=== PATIENT | female | born 1970 | race Caucasian/White ===

== ENCOUNTER 2023-02-27 14:46 | Outpatient (REF) | payer OTHER, SELFPAY ==
--- NOTE | ~2023-02-27 | US_ITS ---
EXAMINATION: MM DIAGNOSTIC DIGITAL BREAST TOMOSYNTHESIS, BILATERAL US BREAST LIMITED, LEFT MAMMOGRAPHY: CLINICAL INFORMATION: Palpable focus of abnormality left breast 1-2 o'clock axis. Due for bilateral screening. COMPARISON: Mammography: 04/27/2021, 08/04/2016, 07/19/2016, 07/15/2014. TECHNIQUE: Digital breast tomosynthesis is performed in both the craniocaudal and mediolateral oblique views along with computer-aided detection (CAD). Synthesized 2D images are generated from the tomosynthesis. In addition, spot compression views of the left breast upper outer axis in the CC and MLO projections were performed in the region of palpable concern. FINDINGS: There are scattered areas of fibroglandular density (ACR BI-RADS breast composition Category b). There are no suspicious masses, suspicious grouped calcifications, or areas of architectural distortion in either breast. The parenchymal pattern is stable from prior exams. There is no mammographic correlate to the region of palpable concern in the upper outer left breast. ULTRASOUND: CLINICAL INFORMATION: Palpable focus of concern upper outer left breast. COMPARISON: None TECHNIQUE: Targeted sonographic evaluation was performed using a high frequency linear transducer. Selected archived documentation. FINDINGS: LEFT BREAST: There is a mixture of fatty and fibroglandular tissue. No suspicious mass is seen. There is no pathologic acoustic shadowing. There is no cystic abnormality. No correlate to the palpable area in the left breast at the 1 to 2:00 axis is evident. US/US breast LT limited mamm only IMPRESSION: There is no finding in the either breast suspicious for malignancy. Palpable focus of concern in the upper outer left breast demonstrates no mammographic or ultrasonographic correlate. Clinical management recommended. Otherwise, recommend resuming routine annual screening. OVERALL ASSESSMENT: Mammography: BI-RADS 1 - Negative Ultrasound: BI-RADS 1 - Negative RECOMMENDATION: 1. Patient should be managed based on the clinical impression. Decision to proceed with biopsy should be based on clinical grounds and degree of clinical concern. 2. Otherwise, routine annual screening mammography. Results were provided to the patient at time of visit by the technologist. This patient's information was entered into a reminder system with a target due date for their next mammogram.
== END 2023-02-27 14:47 | disposition home or self-care (01) ==
LOC: HO.MAMMO 14:46
PROVIDERS: PCP Nurse Practitioner Family; Visit Provider Nurse Practitioner Family
DX: N64.4 Mastodynia (principal)
CPT/HCPCS: 76642; 77062; 77066

== ENCOUNTER → 2023-02-27 15:00 | Outpatient (BNV) | payer OTHER, SELFPAY | PROVIDERS: PCP Nurse Practitioner Family; Visit Provider Radiology Diagnostic Radiology | DX: R92.323 Mammographic fibroglandular density, bilateral breasts (principal); R92.321 Mammographic fibroglandular density, right breast; R92.311 Mammographic fatty tissue density, right breast | CPT/HCPCS: 76642; 77062; 77066 ==

== ENCOUNTER 2024-01-09 05:02 | Emergency (ER) | payer OTHER, SELFPAY ==
--- NOTE | ~2024-01-09 | XR_ITS ---
EXAMINATION: XR CHEST CLINICAL INFORMATION: Cough COMPARISON: None available. TECHNIQUE: Frontal view of the chest was obtained. FINDINGS: Normal appearance of the cardiomediastinal structures. Bone focal coarse reticular opacities within the left middle lung zone. Elsewhere within the lungs, a normal pattern of pulmonary vasculature is noted. No effusions or pneumothoraces. XR/XR chest 1V IMPRESSION: *Findings suspicious for focal pneumonia within the left middle lung zone. Findings are characterized by focal coarse reticular opacities. Recommend follow-up chest radiograph following resolution of acute symptoms to demonstrate resolution and exclude underlying tumor/neoplasm. Electronically signed by: Misha Blackman MD 01/09/2024 06:36 AM EDT
[2024-01-09 05:22] VITALS: BP 128/79; PULSE 86; RESP 16; TEMP 36.6; O2SAT 96; BMI 34.7
[2024-01-09 06:08] LABS: COVID-19 Test Negative (Negative); IDNOW Serial# 6674DD1D
[2024-01-09 06:12] LABS: IDNOW Serial# 58CA691E; Influenza A Negative (Negative); Influenza B2 Negative (Negative)
--- NOTE | 2024-01-09 06:32 | ED_ITS ---
HPI - General Adult General Chief complaint: Upper Respiratory Symptoms Stated complaint: Cough Time Seen by Provider: 01/09/24 06:30 Source: patient Mode of arrival: ambulatory Limitations: no limitations History of Present Illness ED Provider: oliverio COON narrative: Patient is a 53-year-old female presenting to the emergency department with complaint of cough and shortness of breath as well as hoarse voice which began last Monday. 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 Feels as though she is wheezing. Denies fevers. Denies chest pain or palpitations. complaint: cough Onset (ago): day(s) Related Data Previous Rx's ?Medication ?Instructions ?Recorded albuterol sulfate 90 mcg/actuation 2 puff inhalation Q4-6H PRN 01/09/24 aerosol inhaler shortness of breath or wheezing #6.7 grams doxycycline hyclate 100 mg capsule 100 mg PO BID #9 caps 01/09/24 Allergies Allergy/AdvReac Type Severity Reaction Status Date / Time No Known Allergies Allergy Verified 01/09/24 05:24 Review of Systems Review of Systems: As per HPI. Yes all other systems are reviewed and are negative Constitutional: Constitutional: Reports as per HPI [facility] Social History Social History Advance Directives: No Advance Directives Information Provided: Yes Do you have a plan to hurt others: No Plan Physical Exam ED Vital Signs: Vital Signs - 24 hr 01/09/24 05:22 Temperature 97.9 F Pulse Rate 86 Respiratory Rate 16 Blood Pressure 128/79 Pulse Oximetry 96 Oxygen Delivery Method Room Air BMI result Body Mass Index 34.7 Vital signs have been reviewed and appear to be correct. Blood pressure normal. Heart rate normal. Respiratory rate normal. Temperature normal. Oxygen saturation normal. Const General: cooperative, healthy appearing and no acute distress Orientation/consciousness: oriented to person, oriented to place, oriented to time and patient oriented x3 Limitations: no limitations HENMT Head: Yes normocephalic and Yes atraumatic Ears: external ears normal and TM's normal bilaterally General nose exam: Normal external nose present and Normal nasal mucous membranes and turbinates present Face and sinus: Yes face symmetric Mouth: Normal oral and palatal mucosa present, lip normal, tongue normal, oropharynx normal, moist mucous membranes and no trismus Throat: Yes posterior oropharynx normal, Yes tonsils normal, Yes uvula midline, No uvular edema and No cobblestoning Eyes Pupils: Equal, round and reactive pupils present Neck Neck: Yes normal visual inspection and Yes supple Resp Effort & Inspection: normal respiratory effort and able to speak in complete sentences Auscultation: clear to auscultation bilaterally Cardio Rate: regular rate Rhythm: regular rhythm Heart sounds: S1 normal heart sound present and S2 normal heart sound present GI Palpation (GI): Soft to palpation and nontender Auscultation: normoactive bowel sounds General: Yes no CVA tenderness Back/Spine/Pelvis Back: no CVA tenderness Skin General skin exam: elasticity normal and turgor normal Neuro General: oriented to person, oriented to place, oriented to time, patient oriented x3, moves all extremities, no focal motor deficits and CN's II-XI intact bilaterally Cranial nerves: Yes Equal, round and reactive pupils present Cognition (Neuro): normal cognition Extrem General: Yes full ROM, Yes no pedal edema and Yes no calf tenderness Psych Mental Status: mental status grossly normal Affect: normal affect Thought process: Normal thought process present Medical Decision Making Medical Decision Making [facility] Narrative: Patient is a 53-year-old female presenting to the emergency department with complaint of cough and shortness of breath as well as hoarse voice which began last Monday. On exam patient is awake, A+Ox3, VS WNL, afebrile, normal neurological exam without focal deficits, physical exam findings as above. Given reported symptoms and physical exam findings, initial differential includes viral illness, covid, flu, bronchitis, pneumonia. Viral swabs negative. X-ray chest notable for left middle lobe opacities concerning for pneumonia. My interpretation is in agreement with the radiologist's interpretation. Results discussed with patient all questions answered. Patient given 1st dose of doxycycline in the emergency department. Will also send prescription for albuterol inhaler. Return precautions discussed. Instructed patient to follow-up with PCP for repeat chest x-ray. Patient verbalized understanding of and agreement with plan. Differential Diagnosis Differential Diagnoses: The differential diagnosis associated with the presentation includes As per MDM. Lab Data [facility] Lab Attestation statement: I reviewed the patient's lab results. As per MDM. Labs: Lab Results 01/09/24 Range/Units 05:41 COVID-19 (ADELINE) Negative (Negative) COVID-19 Clin Com See Note Influenza Type A ([place]ORIA) Negative (Negative) Influenza Type B ([place]IA) Negative (Negative) Influenza A & B Note See Note Independent Interpretation I performed an independent interpretation of an: Plain X-Ray Interpretation: Left middle lobe pneumonia on chest x-ray Radiology Impression Discussion of test interpretation with radiology: I have reviewed the radiologist's reading. Radiologist Impression: XR/XR chest 1V IMPRESSION: *Findings suspicious for focal pneumonia within the left middle lung zone. Findings are characterized by focal coarse reticular opacities. Recommend follow-up chest radiograph following resolution of acute symptoms to demonstrate resolution and exclude underlying tumor/neoplasm. External Record Review External record reviewed: Inpatient record, Office record and Outpatient record Prescription Management I considered prescription management with: Antibiotic Discharge Plan Discharge Clinical Impression: Pneumonia Patient Disposition: Home, Self-Care Instructions: Community Acquired Pneumonia (DC) Additional Instructions: You were evaluated in the emergency department today for cough and shortness of breath. Your chest x-ray shows evidence of pneumonia. You are being treated with antibiotics, please complete the full course as prescribed. You are also being prescribed an inhaler which you can use per instructions. Please call your primary care provider within the next 2-3 days to schedule a follow-up appointment. You will need a repeat chest x-ray to confirm resolution of your pneumonia. Return to the emergency department if you develop worsening shortness of breath, chest pain, palpitations, fever 100.4? F or greater, or any other concerning symptoms. CLINICAL INFORMATION: Cough COMPARISON: None available. TECHNIQUE: Frontal view of the chest was obtained. FINDINGS: Normal appearance of the cardiomediastinal structures. Bone focal coarse reticular opacities within the left middle lung zone. Elsewhere within the lungs, a normal pattern of pulmonary vasculature is noted. No effusions or pneumothoraces. XR/XR chest 1V IMPRESSION: *Findings suspicious for focal pneumonia within the left middle lung zone. Findings are characterized by focal coarse reticular opacities. Recommend follow-up chest radiograph following resolution of acute symptoms to demonstrate resolution and exclude underlying tumor/neoplasm. Prescriptions: New albuterol sulfate 90 mcg/actuation HFA aerosol inhaler 2 puff inhalation Q4-6H PRN (Reason: shortness of breath or wheezing) Qty: 6.7 0RF doxycycline hyclate 100 mg capsule 100 mg PO BID Qty: 9 0RF Print Language: Setswana
[2024-01-09] MEDS: Doxycycline Monohydrate 100 MG CAPSULE PO (08:07)
[2024-01-09 09:05] VITALS: BP 128/79; PULSE 86; RESP 16; TEMP 36.6; O2SAT 96
== END 2024-01-09 08:30 | disposition home or self-care (01) ==
PROVIDERS: Emergency Provider Emergency Medicine
DX: J18.9 Pneumonia, unspecified organism (principal); R05.9 Cough, unspecified; R06.02 Shortness of breath; Z11.52 Encounter for screening for COVID-19
CPT/HCPCS: 71045; 87502; 87635; 99282; 99284

== ENCOUNTER 2024-03-12 08:37 | Outpatient (AMB) | payer OTHER, SELFPAY ==
--- NOTE | 2024-03-12 08:46 | A.OFFVIS_ITS ---
Vital Signs 03/12/24 09:03 Height 5 ft 2 in Weight 193 lb 1.999 oz BMI 35.3 BP 122/70 Blood Pressure Location Lt brachial Position Sitting Respiration 16 Pulse 79 Pulse Source Pulse Oximeter Pulse Oximetry (%) 96 Oxygen Delivery Method Room Air Intake Visit Reasons: PMR/lm Intake Note: Patient presents for PMR. I been in physical therapy in left shoulder and been in pain since August 2023. I also feel pain on both feet and feel stiffness on both ankles. I been having these symptoms for 2 years. Advil works short term. Vision is deteriorating. Allergies trileptal Allergy (Mild, Uncoded 03/12/24 08:56) Headache Medication List - Last Reconciled 03/12/24 by Sean Díaz MD albuterol sulfate 90 mcg/actuation 2 puffs inhalation Q4-6H PRN lorazepam mg PO sertraline 100 mg PO DAILY HPI Comments Details: This is a 53-year-old female with anxiety, depression and recently diagnosed with ADHD who presents for evaluation of a positive ANNABELLE in the setting of generalized achiness. Patient states that the achiness started about 2 years ago. She believes it is related to menopause. She has generalized achiness, no significant joint pain or swelling. She does have left shoulder pain. She has gone to physical therapy for rotator cuff tendinopathy in the past. She has a sister who from MS. Otherwise she is unaware of any family history of an autoimmune rheumatic disease. She denies any history of DVT/PE. She had 1 , 1 child, no abortions or miscarriages. She she denies any unintentional weight loss, unexplained fevers, rashes. [facility] Medical History Anxiety ADHD MDD (major depressive disorder) Family History Mother Pancreas cancer Anxiety Depression Father History of arthritis Glaucoma Pre-diabetes Stroke Sister Multiple sclerosis Social History Household Members: Family Housing: House Alcohol intake: current Comment: Rare Patient Tobacco Use Status: Never used Tobacco Current occupational status: employed Current occupation: [employer] Female Reproductive History Menstrual Total pregnancies: 1 Number of Living Children: 1 Review of Systems Const Reports body aches, Denies fever(s), Reports night sweats and Reports weight gain Skin/Breast Denies rash Psych Reports abnormal sleep pattern, Reports anxiety and Reports depression Physical Exam Vital Signs: Last Vital Signs Pulse 79 03/12/24 09:03 Resp 16 03/12/24 09:03 BP 122/70 03/12/24 09:03 Pulse Ox 96 03/12/24 09:03 Oxygen Delivery Method Room Air 03/12/24 09:03 BMI result Body Mass Index 35.3 Const General: cooperative, healthy appearing and comfortable Nutritional Appearance: obese Orientation/consciousness: patient oriented x3 Limitations: no limitations HEENT Head: Yes normocephalic and Yes atraumatic Mouth: moist mucous membranes Resp Effort & Inspection: normal respiratory effort and able to speak in complete sentences Auscultation: clear to auscultation bilaterally Cardio Rate: regular rate Skin General skin exam: no rashes or lesions noted Neuro General: patient oriented x3 Extrem Other: Subtle osteoarthritic changes of both hands with no active synovitis Normal nailfold capillaroscopy Normal pain-free range of motion of hands, elbows and shoulders Positive empty can test on the left No knee pain with full flexion-extension No ankle swelling or tenderness bilaterally Results Reviewed Results Reviewed: Labs 08/2023 RF IgM positive repeat was -ve Lyme screen negative ANNABELLE 1-320 dense fine speckled CCP negative CRP normal ESR 21 CBC unremarkable Assessment & Plan Assessment & Plan (1) ANNABELLE positive: Code(s): R76.8 - Other specified abnormal immunological findings in serum Category: Medical Plan: This is a 53-year-old female who presents for evaluation of a positive ANNABELLE 1-320 dfs pattern in the context of diffuse body aches. Upon evaluation I do not see any evidence of an underlying autoimmune rheumatic disease. Discussed with patient that about 20% of the population can have a positive ANNABELLE with no underlying autoimmune rheumatic disease. Clinical picture rather consistent with fibromyalgia. Discussed management of fibromyalgia with patient. Is a noninflammatory, non- autoimmune central afferent processing disorder leading to a diffuse pain syndrome. Patient follows up regularly with psychotherapist and psychiatrist for anxiety/depression and ADHD. Try to follow sleep hygiene practices. Consider a referral for a sleep study from PCP to rule out JERI. Patient exercises regularly, she walks her dogs daily, does belly dancing regularly and yoga daily. Advised patient to continue with exercises . Provided patient with a both let on how to manage fibromyalgia Discussed with patient the symptoms and signs that are suggestive of an autoimmune rheumatic disease. Advised patient to return as needed Plan I spent 35 minutes reviewing patient's chart, evaluating patient, counseling patient and documenting in the chart Medications: Discontinued doxycycline hyclate Discontinued Reason: Patient no longer taking 100 mg PO BID 9 caps 0RF Coding Level of Care Code New Pt Level 3 (92897) Diagnoses ANNABELLE positive R76.8
[2024-03-12 09:03] VITALS: BP 122/70; PULSE 79; RESP 16; O2SAT 96; BMI 35.3
== END 2024-03-12 09:29 | disposition home or self-care (01) ==
PROVIDERS: Visit Provider Student in an Organized Health Care Education/Training Program
DX: R76.8 Other specified abnormal immunological findings in serum (principal)
CPT/HCPCS: 99203

== ENCOUNTER → 2024-03-12 08:37 | Outpatient (BNVA) | payer OTHER, SELFPAY | PROVIDERS: Visit Provider Student in an Organized Health Care Education/Training Program ==